=== PATIENT | male | born 1955 | race African-American/Black ===

== ENCOUNTER 2020-08-25 20:48 | Inpatient (IN) ==
[2020-08-25] MEDS ORDERED: SODIUM CHLORIDE 0.9% 1,000 ML IV STA (21:24)
[2020-08-25 21:34] LABS: Basophils % 0.3 % (0.0-0.8); Eosinophils # 0.1 10*3/uL (0.0-0.87); Eosinophils % 3.6 % (0.00-10.9); Hematocrit 32.1 VOL% (42.0-52.0); Hemoglobin 11.3 GM/DL (14.0-18.0); Immature Granulocytes % 0.3 %; Immature Granulocytes Absolute 0.01 #; Lymphocytes # 0.8 10*3/uL (1.4-4.0); Lymphocytes % 21.3 % (21.2-54.2); Mean Corpuscular HGB Conc 35.2 GM/DL (32-36); Mean Corpuscular Volume 95.3 FL (87-102); Mean Platelet Volume 10.2 FL (9.6-12.0); Monocytes % 8.3 % (1.7-12.7); Neutrophils % 66.2 % (38.7-73.9); Platelet Count 134 T/CUMM (130-400); Red Blood Count 3.37 MC/CUMM (3.8-5.5); White Blood Count 3.6 T/CUMM (4-12)
[2020-08-25 21:39] LABS: INR 1.5; PT Patient Result 15.5 SECS (9.8-11.9)
[2020-08-25 21:48] LABS: Albumin 2.8 G/DL (3.4-5.0); Bilirubin,Total 0.6 MG/DL (0.2-1.0); Calcium 7.6 MG/DL (8.5-10.1); Ferritin 504.9 ng/ml (26-388); Osmolality,Calculated 276.2 MOS/KG (273-304)
[2020-08-25] MEDS ORDERED: DEXAMETHASONE 10 MG/1 ML VIAL IV STA (22:10)
[2020-08-25] MEDS ORDERED: AZITHROMYCIN INJ 500 MG in SODIUM CHLORIDE 0.9% 250 ML IV STA (22:10)
[2020-08-25] MEDS ORDERED: diphenhydrAMINE CAP 25 MG CAPSULE PO PRN (23:23)
[2020-08-25] MEDS ORDERED: DEXTROSE 50% 25 GM/50 ML VIAL IV PRN (23:23)
[2020-08-25] MEDS ORDERED: hydrALAZINE 20 MG/1 ML VIAL IV PRN (23:23)
[2020-08-25] MEDS ORDERED: guaiFENesin/DM ER 600-30 MG TABLET PO PRN (23:23)
[2020-08-25] MEDS ORDERED: ACETAMINOPHEN 325 MG TABLET PO PRN (23:23)
[2020-08-25] MEDS ORDERED: GLUCAGON 1 MG VIAL IM PRN (23:23)
[2020-08-25] MEDS ORDERED: NICOTINE 21 MG/24 HR PATCH TRANSDERM PRN (23:23)
[2020-08-25] MEDS ORDERED: ONDANSETRON 4 MG/2 ML VIAL IV PRN (23:23)
[2020-08-26 01:29] LABS: ABG Base Excess 0.7 MMOL/L (-2.5-2.5); ABG Oxygen Saturation 99.2 % (95-100); ABG PCO2 39.3 MM HG (35-48); ABG PH 7.414 (7.35-7.45); ABG TCO2 22.3 MMOL/L (23-27)
[2020-08-26] MEDS: cefTRIAXone 1,000 MG in SYRINGE 1 EACH IV SCH (03:32)
[2020-08-26] MEDS ORDERED: DEXAMETHASONE 4 MG/1 ML VIAL IV SCH (09:00)
[2020-08-26] MEDS: INSULIN REGULAR 100 UNIT/ML SUBCUT SCH ×5 (09:14→21:24)
[2020-08-26] MEDS: AZITHROMYCIN 250 MG TABLET PO SCH (09:15)
[2020-08-26] MEDS ORDERED: REMDESIVIR 200 MG in SODIUM CHLORIDE 0.9% 210 ML IV ONE (10:00)
[2020-08-26] MEDS ORDERED: CETIRIZINE 10 MG TABLET PO PRN (11:18)
[2020-08-26] MEDS ORDERED: NITROGLYCERIN SL 0.4 MG TABLET SL PRN (11:29)
[2020-08-26] MEDS: ASPIRIN CHEW 81 MG TABLET PO SCH (11:47)
[2020-08-26] MEDS: ASCORBIC ACID 500 MG TABLET PO SCH ×2 (11:47→21:34)
[2020-08-26] MEDS: ZINC SULFATE 220 MG CAPSULE PO SCH (11:47)
[2020-08-26] MEDS: DEXAMETHASONE 4 MG/1 ML VIAL IV SCH (11:47)
[2020-08-26] MEDS: CHOLECALCIFEROL 1,000 UNIT TABLET PO SCH (11:47)
[2020-08-26 15:23] LABS: Bilirubin,Urine Negative (Negative); Blood, Urine Small mg/dL (Negative); Glucose,Urine (UA) >=500 mg/dL (Negative); Ketones,Urine 5 mg/dL (Negative); Mucus,Urine Occasional /LPF (Occasional); Nitrite,Urine Negative (Negative); Protein,Urine Negative; RBC,Urine 2 /HPF (0-4); Squamous Epithelial Cell,Urine Occasional /HPF (0-10); Urine Appearance CLEAR (Clear); Urine Color Straw (Yellow); Urine Specific Gravity 1.028 (1.001-1.035); Urine Urobilinogen < 2.0 EU/DL (0.2-1.0)
[2020-08-26] MEDS ORDERED: INSULIN NPH/REGULAR 70/30 100 UNIT/ML SUBCUT SCH (17:00)
[2020-08-26] MEDS: lisinopriL 10 MG TABLET PO SCH (21:34)
[2020-08-26] MEDS: FUROSEMIDE 40 MG TABLET PO SCH (21:34)
[2020-08-26] MEDS: FAMOTIDINE 20 MG TABLET PO SCH (21:34)
[2020-08-26] MEDS: METOPROLOL TARTRATE 50 MG TABLET PO SCH (21:34)
[2020-08-26] MEDS: ATORVASTATIN 10 MG TABLET PO SCH (21:34)
[2020-08-26] MEDS: GABAPENTIN 400 MG CAPSULE PO SCH (21:34)
[2020-08-27] MEDS: cefTRIAXone 1,000 MG in SYRINGE 1 EACH IV SCH (00:39)
[2020-08-27 06:07] LABS: Hematocrit 35.6 VOL% (42.0-52.0); Hemoglobin 12.5 GM/DL (14.0-18.0); Immature Granulocytes % 0.3 %; Immature Granulocytes Absolute 0.02 #; Lymphocytes # 1.6 10*3/uL (1.4-4.0); Lymphocytes % 27.5 % (21.2-54.2); Mean Corpuscular HGB Conc 35.1 GM/DL (32-36); Mean Corpuscular Volume 95.7 FL (87-102); Mean Platelet Volume 10.4 FL (9.6-12.0); Neutrophils % 66.2 % (38.7-73.9); Platelet Count 165 T/CUMM (130-400); Red Blood Count 3.72 MC/CUMM (3.8-5.5); Red Cell Distribution Width 11.9 % (9.3-17.3)
[2020-08-27 06:26] LABS: Albumin 2.9 G/DL (3.4-5.0); Bilirubin,Total 0.7 MG/DL (0.2-1.0); Calcium 8.4 MG/DL (8.5-10.1); Osmolality,Calculated 281.7 MOS/KG (273-304); Total Protein 7.5 G/DL (6.4-8.3)
[2020-08-27 06:46] LABS: Hypochromasia 1+; Microcytosis 1+; Platelet Estimate Adequate
[2020-08-27] MEDS: CLOPIDOGREL 75 MG TABLET PO SCH (08:37)
[2020-08-27] MEDS: CETIRIZINE 10 MG TABLET PO SCH (08:37)
[2020-08-27] MEDS: DEXAMETHASONE 4 MG/1 ML VIAL IV SCH (08:37)
[2020-08-27] MEDS: ASPIRIN CHEW 81 MG TABLET PO SCH (08:37)
[2020-08-27] MEDS: AZITHROMYCIN 250 MG TABLET PO SCH (08:38)
[2020-08-27] MEDS: ASCORBIC ACID 500 MG TABLET PO SCH ×2 (08:38→21:23)
[2020-08-27] MEDS: GABAPENTIN 400 MG CAPSULE PO SCH ×2 (08:38→21:23)
[2020-08-27] MEDS: lisinopriL 10 MG TABLET PO SCH ×2 (08:38→21:23)
[2020-08-27] MEDS: METOPROLOL TARTRATE 50 MG TABLET PO SCH ×2 (08:38→21:23)
[2020-08-27] MEDS: INSULIN NPH/REGULAR 70/30 100 UNIT/ML SUBCUT SCH ×2 (08:38→16:27)
[2020-08-27] MEDS: ZINC SULFATE 220 MG CAPSULE PO SCH (08:38)
[2020-08-27] MEDS: FUROSEMIDE 40 MG TABLET PO SCH ×2 (08:38→21:23)
[2020-08-27] MEDS: FAMOTIDINE 20 MG TABLET PO SCH (08:39)
[2020-08-27] MEDS: INSULIN REGULAR 100 UNIT/ML SUBCUT SCH ×4 (08:39→21:23)
[2020-08-27] MEDS: CHOLECALCIFEROL 1,000 UNIT TABLET PO SCH (08:39)
[2020-08-27] MEDS: REMDESIVIR 100 MG in SODIUM CHLORIDE 0.9% 230 ML IV SCH (09:53)
[2020-08-27] MEDS: ALBUTEROL INHALER 18 GM INH SCH ×2 (14:29→18:22)
[2020-08-27] MEDS: ATORVASTATIN 10 MG TABLET PO SCH (21:23)
[2020-08-28] MEDS: cefTRIAXone 1,000 MG in SYRINGE 1 EACH IV SCH ×2 (00:59→23:50)
[2020-08-28] MEDS: ALBUTEROL INHALER 18 GM INH SCH ×4 (01:09→18:22)
[2020-08-28 04:33] LABS: ABG Base Excess 1.4 MMOL/L (-2.5-2.5); ABG Oxygen Saturation 98.5 % (95-100); ABG PCO2 40.9 MM HG (35-48); ABG PH 7.421 (7.35-7.45); ABG PO2 145.3 MM HG (80-95); ABG TCO2 27.2 MMOL/L (23-27); Allen Test Positive
[2020-08-28 06:01] LABS: Basophils % 0.3 % (0.0-0.8); Hematocrit 34.8 VOL% (42.0-52.0); Hemoglobin 12.1 GM/DL (14.0-18.0); Immature Granulocytes % 0.5 %; Immature Granulocytes Absolute 0.03 #; Lymphocytes # 1.7 10*3/uL (1.4-4.0); Lymphocytes % 26.4 % (21.2-54.2); Mean Corpuscular HGB Conc 34.8 GM/DL (32-36); Mean Corpuscular Volume 96.9 FL (87-102); Mean Platelet Volume 10.3 FL (9.6-12.0); Neutrophils % 62.8 % (38.7-73.9); Platelet Count 161 T/CUMM (130-400); Red Blood Count 3.59 MC/CUMM (3.8-5.5); White Blood Count 6.3 T/CUMM (4-12)
[2020-08-28 06:31] LABS: Hypochromasia 1+; Lymphocytes 19 % (20-55); Microcytosis 1+; Platelet Estimate Adequate; Segmented Neutrophils 71 % (50-85); Total Cells Counted 100
[2020-08-28 06:36] LABS: Albumin 2.9 G/DL (3.4-5.0); Bilirubin,Total 1.2 MG/DL (0.2-1.0); Calcium 8.1 MG/DL (8.5-10.1); Osmolality,Calculated 279.3 MOS/KG (273-304); Total Protein 7.2 G/DL (6.4-8.3)
[2020-08-28] MEDS: DEXAMETHASONE 4 MG/1 ML VIAL IV SCH (09:32)
[2020-08-28] MEDS: REMDESIVIR 100 MG in SODIUM CHLORIDE 0.9% 230 ML IV SCH (09:32)
[2020-08-28] MEDS: ZINC SULFATE 220 MG CAPSULE PO SCH (09:32)
[2020-08-28] MEDS: AZITHROMYCIN 250 MG TABLET PO SCH (09:33)
[2020-08-28] MEDS: FUROSEMIDE 40 MG TABLET PO SCH ×2 (09:33→21:21)
[2020-08-28] MEDS: GABAPENTIN 400 MG CAPSULE PO SCH ×2 (09:33→21:21)
[2020-08-28] MEDS: lisinopriL 10 MG TABLET PO SCH ×2 (09:33→21:21)
[2020-08-28] MEDS: CHOLECALCIFEROL 1,000 UNIT TABLET PO SCH (09:33)
[2020-08-28] MEDS: CETIRIZINE 10 MG TABLET PO SCH (09:33)
[2020-08-28] MEDS: METOPROLOL TARTRATE 50 MG TABLET PO SCH ×2 (09:33→21:21)
[2020-08-28] MEDS: ASCORBIC ACID 500 MG TABLET PO SCH ×2 (09:33→21:21)
[2020-08-28] MEDS: ASPIRIN CHEW 81 MG TABLET PO SCH (09:34)
[2020-08-28] MEDS: INSULIN NPH/REGULAR 70/30 100 UNIT/ML SUBCUT SCH ×2 (09:34→17:10)
[2020-08-28] MEDS: FAMOTIDINE 20 MG TABLET PO SCH (09:34)
[2020-08-28] MEDS: CLOPIDOGREL 75 MG TABLET PO SCH (09:34)
[2020-08-28] MEDS: INSULIN REGULAR 100 UNIT/ML SUBCUT SCH ×4 (09:34→20:00)
[2020-08-28] MEDS ORDERED: POTASSIUM CHLORIDE 20 MEQ TABLET PO ONE (11:00)
[2020-08-28] MEDS: ENOXAPARIN 40 MG/0.4 ML SYRINGE SUBCUT SCH (12:56)
[2020-08-28] MEDS ORDERED: PHENOL 1.4% THROAT SPRAY 177 ML BOTTLE PO PRN (17:11)
[2020-08-28] MEDS: ATORVASTATIN 10 MG TABLET PO SCH (21:21)
[2020-08-29] MEDS: ALBUTEROL INHALER 18 GM INH SCH ×4 (00:22→19:16)
[2020-08-29 05:44] LABS: Basophils % 0.2 % (0.0-0.8); Eosinophils # 0.1 10*3/uL (0.0-0.87); Eosinophils % 1.5 % (0.00-10.9); Hemoglobin 11.9 GM/DL (14.0-18.0); Immature Granulocytes % 0.3 %; Immature Granulocytes Absolute 0.02 #; Lymphocytes % 33.9 % (21.2-54.2); Mean Platelet Volume 10.4 FL (9.6-12.0); Monocytes % 7.6 % (1.7-12.7); Neutrophils % 56.5 % (38.7-73.9); Platelet Count 164 T/CUMM (130-400); Red Blood Count 3.54 MC/CUMM (3.8-5.5); Red Cell Distribution Width 11.9 % (9.3-17.3); White Blood Count 5.9 T/CUMM (4-12)
[2020-08-29 06:16] LABS: Albumin 2.7 G/DL (3.4-5.0); Bilirubin,Total 1.2 MG/DL (0.2-1.0); Calcium 7.9 MG/DL (8.5-10.1); Osmolality,Calculated 282.3 MOS/KG (273-304)
[2020-08-29 06:19] LABS: Atypical Lymphocytes Few; Eosinophils 1 % (0-10); Hypochromasia 1+; Lymphocytes 33 % (20-55); Microcytosis 1+; Platelet Estimate Adequate; Segmented Neutrophils 60 % (50-85); Total Cells Counted 100
[2020-08-29] MEDS: INSULIN NPH/REGULAR 70/30 100 UNIT/ML SUBCUT SCH ×2 (09:05→16:37)
[2020-08-29] MEDS: CETIRIZINE 10 MG TABLET PO SCH (09:05)
[2020-08-29] MEDS: ASCORBIC ACID 500 MG TABLET PO SCH ×2 (09:05→20:30)
[2020-08-29] MEDS: CLOPIDOGREL 75 MG TABLET PO SCH (09:05)
[2020-08-29] MEDS: FUROSEMIDE 40 MG TABLET PO SCH ×2 (09:05→20:30)
[2020-08-29] MEDS: METOPROLOL TARTRATE 50 MG TABLET PO SCH ×2 (09:05→20:30)
[2020-08-29] MEDS: ASPIRIN CHEW 81 MG TABLET PO SCH (09:05)
[2020-08-29] MEDS: GABAPENTIN 400 MG CAPSULE PO SCH ×2 (09:05→20:30)
[2020-08-29] MEDS: AZITHROMYCIN 250 MG TABLET PO SCH (09:05)
[2020-08-29] MEDS: FAMOTIDINE 20 MG TABLET PO SCH (09:05)
[2020-08-29] MEDS: ZINC SULFATE 220 MG CAPSULE PO SCH (09:05)
[2020-08-29] MEDS: CHOLECALCIFEROL 1,000 UNIT TABLET PO SCH (09:05)
[2020-08-29] MEDS: lisinopriL 10 MG TABLET PO SCH ×2 (09:05→20:30)
[2020-08-29] MEDS: INSULIN REGULAR 100 UNIT/ML SUBCUT SCH ×4 (09:13→20:30)
[2020-08-29] MEDS: DEXAMETHASONE 4 MG/1 ML VIAL IV SCH (09:14)
[2020-08-29] MEDS: REMDESIVIR 100 MG in SODIUM CHLORIDE 0.9% 230 ML IV SCH (09:15)
[2020-08-29] MEDS: ENOXAPARIN 40 MG/0.4 ML SYRINGE SUBCUT SCH (11:08)
[2020-08-29] MEDS: ATORVASTATIN 10 MG TABLET PO SCH (20:30)
[2020-08-30] MEDS: ALBUTEROL INHALER 18 GM INH SCH ×2 (00:07→06:12)
[2020-08-30] MEDS: cefTRIAXone 1,000 MG in SYRINGE 1 EACH IV SCH (00:07)
[2020-08-30 06:13] LABS: Basophils % 0.3 % (0.0-0.8); Eosinophils % 0.3 % (0.00-10.9); Hematocrit 33.6 VOL% (42.0-52.0); Hemoglobin 11.9 GM/DL (14.0-18.0); Immature Granulocytes % 0.3 %; Immature Granulocytes Absolute 0.02 #; Lymphocytes # 1.7 10*3/uL (1.4-4.0); Lymphocytes % 27.7 % (21.2-54.2); Mean Corpuscular HGB Conc 35.4 GM/DL (32-36); Mean Platelet Volume 10.5 FL (9.6-12.0); Monocytes % 7.9 % (1.7-12.7); Neutrophils % 63.5 % (38.7-73.9); Platelet Count 201 T/CUMM (130-400); White Blood Count 6.2 T/CUMM (4-12)
[2020-08-30 06:36] LABS: Band Neutrophils 1 % (0-10); Hypochromasia 1+; Lymphocytes 30 % (20-55); Microcytosis 1+; Ovalocytes Slight; Platelet Estimate Adequate; Segmented Neutrophils 64 % (50-85); Total Cells Counted 100
[2020-08-30 06:37] LABS: Atypical Lymphocytes Few
[2020-08-30 06:55] LABS: Albumin 2.7 G/DL (3.4-5.0); Bilirubin,Total 1.6 MG/DL (0.2-1.0); Calcium 8.5 MG/DL (8.5-10.1); Osmolality,Calculated 282.5 MOS/KG (273-304); Total Protein 7.2 G/DL (6.4-8.3)
[2020-08-30] MEDS: INSULIN NPH/REGULAR 70/30 100 UNIT/ML SUBCUT SCH (08:39)
[2020-08-30] MEDS: METOPROLOL TARTRATE 50 MG TABLET PO SCH (08:40)
[2020-08-30] MEDS: GABAPENTIN 400 MG CAPSULE PO SCH (08:40)
[2020-08-30] MEDS: ZINC SULFATE 220 MG CAPSULE PO SCH (08:40)
[2020-08-30] MEDS: CHOLECALCIFEROL 1,000 UNIT TABLET PO SCH (08:40)
[2020-08-30] MEDS: lisinopriL 10 MG TABLET PO SCH (08:40)
[2020-08-30] MEDS: CLOPIDOGREL 75 MG TABLET PO SCH (08:40)
[2020-08-30] MEDS: DEXAMETHASONE 4 MG/1 ML VIAL IV SCH (08:40)
[2020-08-30] MEDS: INSULIN REGULAR 100 UNIT/ML SUBCUT SCH ×2 (08:40→11:24)
[2020-08-30] MEDS: FAMOTIDINE 20 MG TABLET PO SCH (08:41)
[2020-08-30] MEDS: FUROSEMIDE 40 MG TABLET PO SCH (08:41)
[2020-08-30] MEDS: ASCORBIC ACID 500 MG TABLET PO SCH (08:41)
[2020-08-30] MEDS: ASPIRIN CHEW 81 MG TABLET PO SCH (08:41)
[2020-08-30] MEDS: CETIRIZINE 10 MG TABLET PO SCH (08:41)
[2020-08-30] MEDS: REMDESIVIR 100 MG in SODIUM CHLORIDE 0.9% 230 ML IV SCH (10:47)
[2020-08-30] MEDS: ENOXAPARIN 40 MG/0.4 ML SYRINGE SUBCUT SCH (11:24)
[2020-08-30 11:38] VITALS: BP 144/77
== END 2020-08-30 13:20 | disposition home health service (06) | DRG 177 ==
LOC: EDUNIT# → EDBD → N.ED 20:48 → N.EDINP 20:48 → SUATTDRO 23:23 → N.2E 23:44
PROVIDERS: ADMIT Family Medicine; ATTEND Internal Medicine

== ENCOUNTER 2020-12-28 10:48 | Observation (INO) ==
[2020-12-28 11:17] LABS: Basophils % 0.5 % (0.0-0.8); Eosinophils # 0.6 10*3/uL (0.0-0.87); Eosinophils % 8.6 % (0.00-10.9); Hematocrit 37.2 VOL% (42.0-52.0); Hemoglobin 12.5 GM/DL (14.0-18.0); Immature Granulocytes % 0.5 %; Immature Granulocytes Absolute 0.03 #; Lymphocytes % 31.8 % (21.2-54.2); Mean Corpuscular HGB Conc 33.6 GM/DL (32-36); Mean Corpuscular Volume 100.3 FL (87-102); Mean Platelet Volume 9.4 FL (9.6-12.0); Monocytes % 10.5 % (1.7-12.7); Neutrophils % 48.1 % (38.7-73.9); Platelet Count 198 T/CUMM (130-400); Red Blood Count 3.71 MC/CUMM (3.8-5.5); Red Cell Distribution Width 14.2 % (9.3-17.3); White Blood Count 6.4 T/CUMM (4-12)
[2020-12-28] MEDS ORDERED: ENOXAPARIN 100 MG/ML SYRINGE SUBCUT STA (11:32)
[2020-12-28 11:46] LABS: Calcium 8.7 MG/DL (8.5-10.1)
[2020-12-28 11:47] LABS: Albumin 3.3 G/DL (3.4-5.0); Osmolality,Calculated 285.8 MOS/KG (273-304); Total Protein 7.3 G/DL (6.4-8.2)
[2020-12-28] MEDS ORDERED: FUROSEMIDE 100 MG/10 ML VIAL IV STA (12:14)
[2020-12-28] MEDS ORDERED: FUROSEMIDE 40 MG/4 ML VIAL ONE (12:19)
[2020-12-28] MEDS ORDERED: DEXTROSE 50% 25 GM/50 ML VIAL IV PRN (13:23)
[2020-12-28] MEDS ORDERED: GLUCAGON 1 MG VIAL IM PRN (13:23)
[2020-12-28] MEDS ORDERED: hydrALAZINE 20 MG/1 ML VIAL IV PRN (13:23)
[2020-12-28] MEDS ORDERED: ACETAMINOPHEN 325 MG TABLET PO PRN (13:23)
[2020-12-28] MEDS ORDERED: ONDANSETRON 4 MG/2 ML VIAL IV PRN (13:23)
[2020-12-28] MEDS ORDERED: NITROGLYCERIN SL 0.4 MG TABLET SL PRN (13:27)
[2020-12-28 14:09] LABS: Thyroid Stimulating Hormone 2.93 uIU/ml (0.358-3.74); VLDL CHOLESTEROL 21.2 MG/DL
[2020-12-28 15:53] LABS: INR 3.5
[2020-12-28 15:55] LABS: PT Patient Result 35.3 SECS (9.8-11.9)
[2020-12-28] MEDS: INSULIN LISPRO 100 UNIT/ML SUBCUT SCH ×2 (16:18→20:51)
[2020-12-28] MEDS ORDERED: INSULIN NPH/REGULAR 70/30 100 UNIT/ML SUBCUT SCH (19:00)
[2020-12-28] MEDS: FUROSEMIDE 40 MG/4 ML VIAL IV SCH (20:50)
[2020-12-28] MEDS: METOPROLOL TARTRATE 50 MG TABLET PO SCH (20:50)
[2020-12-28] MEDS ORDERED: lisinopriL 10 MG TABLET PO SCH (21:00)
[2020-12-28] MEDS ORDERED: ATORVASTATIN 10 MG TABLET PO SCH (21:00)
[2020-12-29 05:45] LABS: Basophils % 0.3 % (0.0-0.8); Eosinophils # 0.6 10*3/uL (0.0-0.87); Eosinophils % 8.2 % (0.00-10.9); Hematocrit 37.5 VOL% (42.0-52.0); Hemoglobin 12.6 GM/DL (14.0-18.0); Immature Granulocytes % 0.3 %; Immature Granulocytes Absolute 0.02 #; Lymphocytes # 2.6 10*3/uL (1.4-4.0); Lymphocytes % 36.8 % (21.2-54.2); Mean Corpuscular HGB Conc 33.6 GM/DL (32-36); Mean Corpuscular Volume 99.5 FL (87-102); Mean Platelet Volume 9.6 FL (9.6-12.0); Monocytes % 11.8 % (1.7-12.7); Neutrophils % 42.6 % (38.7-73.9); Platelet Count 207 T/CUMM (130-400); Red Blood Count 3.77 MC/CUMM (3.8-5.5); White Blood Count 6.9 T/CUMM (4-12)
[2020-12-29 05:47] LABS: INR 2.3; PT Patient Result 23.6 SECS (9.8-11.9)
[2020-12-29 06:08] LABS: Calcium 8.9 MG/DL (8.5-10.1); Osmolality,Calculated 283.3 MOS/KG (273-304); Potassium 4.1 MMOL/L (3.5-5.1)
[2020-12-29] MEDS ORDERED: CLOPIDOGREL 75 MG TABLET PO SCH (09:00)
[2020-12-29] MEDS ORDERED: lisinopriL 20 MG TABLET PO SCH (09:00)
[2020-12-29] MEDS ORDERED: ENOXAPARIN 40 MG/0.4 ML SYRINGE SUBCUT SCH (09:00)
[2020-12-29] MEDS ORDERED: PANTOPRAZOLE 40 MG TABLET PO SCH (09:00)
[2020-12-29] MEDS ORDERED: ASPIRIN 325 MG TABLET PO SCH (09:00)
[2020-12-29] MEDS ORDERED: INSULIN NPH/REGULAR 70/30 100 UNIT/ML SUBCUT SCH (09:00)
[2020-12-29] MEDS: INSULIN LISPRO 100 UNIT/ML SUBCUT SCH ×3 (10:09→16:47)
[2020-12-29] MEDS: METOPROLOL TARTRATE 50 MG TABLET PO SCH (10:11)
[2020-12-29] MEDS: FUROSEMIDE 40 MG/4 ML VIAL IV SCH ×2 (10:14→16:31)
[2020-12-29 11:16] VITALS: BP 128/75
== END 2020-12-29 17:14 | disposition home or self-care (01) ==
LOC: N.EDINP 10:48 → N.ED 10:48 → N.EDINP 15:50 → N.TELES 15:59
PROVIDERS: ADMIT Internal Medicine; ATTEND Internal Medicine

== ENCOUNTER 2021-11-23 12:15 | Inpatient (IN) ==
[2021-11-23 14:49] LABS: Basophils % 0.3 % (0.0-0.8); Eosinophils # 0.1 10*3/uL (0.0-0.87); Eosinophils % 2.2 % (0.00-10.9); Hematocrit 39.6 VOL% (42.0-52.0); Hemoglobin 13.6 GM/DL (14.0-18.0); Immature Granulocytes % 0.3 %; Immature Granulocytes Absolute 0.02 #; Lymphocytes # 2.3 10*3/uL (1.4-4.0); Lymphocytes % 36.9 % (21.2-54.2); Mean Corpuscular HGB Conc 34.3 GM/DL (32-36); Mean Corpuscular Volume 96.4 FL (87-102); Mean Platelet Volume 9.3 FL (9.6-12.0); Monocytes % 10.8 % (1.7-12.7); Neutrophils % 49.5 % (38.7-73.9); Platelet Count 200 T/CUMM (130-400); Red Blood Count 4.11 MC/CUMM (3.8-5.5); Red Cell Distribution Width 11.9 % (9.3-17.3); White Blood Count 6.2 T/CUMM (4-12)
[2021-11-23 15:10] LABS: Albumin 3.2 G/DL (3.4-5.0); Bilirubin,Total 0.5 MG/DL (0.20-1.00); Calcium 8.5 MG/DL (8.5-10.1); Osmolality,Calculated 282.4 MOS/KG (273-304); Potassium 4.3 MMOL/L (3.5-5.1); Total Protein 7.9 G/DL (6.4-8.2)
[2021-11-23] MEDS ORDERED: ONDANSETRON 4 MG/2 ML VIAL IV PRN (15:46)
[2021-11-23] MEDS ORDERED: ACETAMINOPHEN 325 MG TABLET PO PRN (15:46)
[2021-11-23 15:47] LABS: Eosinophils 3 % (0-10); Hypochromia 1+; Lymphocytes 33 % (20-55); Macrocytosis 1+; Platelet Estimate Decreased; Segmented Neutrophils 57 % (50-85); Total Cells Counted 100
[2021-11-23] MEDS ORDERED: NITROGLYCERIN SL 0.4 MG TABLET SL PRN (15:50)
[2021-11-23] MEDS ORDERED: GLUCAGON 1 MG VIAL IM PRN (16:58)
[2021-11-23] MEDS ORDERED: DEXTROSE 10% 250 ML BAG IV PRN (17:04)
[2021-11-23] MEDS ORDERED: hydrALAZINE 20 MG/1 ML VIAL IV PRN (17:12)
[2021-11-23] MEDS: PIPERACILLIN/TAZOBACTAM 3,375 MG in SODIUM CHLORIDE 0.9% 100 ML IV SCH (17:15)
[2021-11-23] MEDS ORDERED: INSULIN NPH 100 UNIT/ML SUBCUT SCH (17:16)
[2021-11-23] MEDS ORDERED: INSULIN NPH/REGULAR 70/30 100 UNIT/ML SUBCUT SCH ×2 (17:30→19:00)
[2021-11-23] MEDS: INSULIN LISPRO 100 UNIT/ML SUBCUT SCH ×2 (18:10→21:00)
[2021-11-23] MEDS: SODIUM CHLORIDE 0.45% 1,000 ML IV SCH (18:10)
[2021-11-23 18:22] LABS: INR 1.2; PT Patient Result 13.1 SECS (10.5-12.0)
[2021-11-23] MEDS: ALBUTEROL 2.5 MG/3 ML NEB RESP TX SCH (19:25)
[2021-11-23] MEDS: GABAPENTIN 400 MG CAPSULE PO SCH (20:51)
[2021-11-23] MEDS: METOPROLOL TARTRATE 50 MG TABLET PO SCH (20:52)
[2021-11-23] MEDS: lisinopriL 20 MG TABLET PO SCH (20:53)
[2021-11-23] MEDS ORDERED: diphenhydrAMINE CAP 25 MG CAPSULE PO ONE (23:30)
[2021-11-24] MEDS: ALBUTEROL 2.5 MG/3 ML NEB RESP TX SCH ×4 (00:05→19:28)
[2021-11-24] MEDS: PIPERACILLIN/TAZOBACTAM 3,375 MG in SODIUM CHLORIDE 0.9% 100 ML IV SCH ×3 (00:47→16:01)
[2021-11-24] MEDS: INSULIN LISPRO 100 UNIT/ML SUBCUT SCH ×5 (04:17→21:15)
[2021-11-24 06:17] LABS: Basophils % 0.4 % (0.0-0.8); Eosinophils # 0.2 10*3/uL (0.0-0.87); Eosinophils % 4.2 % (0.00-10.9); Hematocrit 37.9 VOL% (42.0-52.0); Hemoglobin 12.9 GM/DL (14.0-18.0); Immature Granulocytes % 0.4 %; Immature Granulocytes Absolute 0.02 #; Lymphocytes # 1.9 10*3/uL (1.4-4.0); Lymphocytes % 33.3 % (21.2-54.2); Mean Corpuscular Volume 96.9 FL (87-102); Mean Platelet Volume 9.1 FL (9.6-12.0); Monocytes % 14.2 % (1.7-12.7); Neutrophils % 47.5 % (38.7-73.9); Platelet Count 177 T/CUMM (130-400); Red Blood Count 3.91 MC/CUMM (3.8-5.5); Red Cell Distribution Width 11.9 % (9.3-17.3); White Blood Count 5.7 T/CUMM (4-12)
[2021-11-24 06:19] LABS: INR 1.2; PT Patient Result 12.9 SECS (10.5-12.0)
[2021-11-24 06:23] LABS: Calcium 8.2 MG/DL (8.5-10.1)
[2021-11-24] MEDS ORDERED: FUROSEMIDE 20 MG TABLET PO SCH (08:00)
[2021-11-24] MEDS: ASPIRIN 325 MG TABLET PO SCH (08:37)
[2021-11-24] MEDS: METOPROLOL TARTRATE 50 MG TABLET PO SCH ×2 (08:38→21:15)
[2021-11-24] MEDS: lisinopriL 20 MG TABLET PO SCH ×2 (08:39→21:15)
[2021-11-24] MEDS: PANTOPRAZOLE 40 MG TABLET PO SCH (08:39)
[2021-11-24] MEDS: GABAPENTIN 400 MG CAPSULE PO SCH ×3 (08:39→21:15)
[2021-11-24] MEDS: SODIUM CHLORIDE 0.45% 1,000 ML IV SCH ×3 (08:40→18:00)
[2021-11-24] MEDS ORDERED: INSULIN NPH 100 UNIT/ML SUBCUT SCH (09:00)
[2021-11-24] MEDS: INSULIN NPH/REGULAR 70/30 100 UNIT/ML SUBCUT SCH (21:15)
[2021-11-24] MEDS: oxyCODONE/ACETAMINOPHEN 5-325 MG TABLET PO PRN (21:15)
[2021-11-25] MEDS: INSULIN LISPRO 100 UNIT/ML SUBCUT SCH ×6 (00:35→21:40)
[2021-11-25] MEDS: ALBUTEROL 2.5 MG/3 ML NEB RESP TX SCH ×4 (00:55→19:36)
[2021-11-25] MEDS: PIPERACILLIN/TAZOBACTAM 3,375 MG in SODIUM CHLORIDE 0.9% 100 ML IV SCH ×3 (01:15→17:11)
[2021-11-25 05:44] LABS: Basophils % 0.6 % (0.0-0.8); Eosinophils # 0.2 10*3/uL (0.0-0.87); Eosinophils % 4.7 % (0.00-10.9); Hematocrit 40.8 VOL% (42.0-52.0); Hemoglobin 13.1 GM/DL (14.0-18.0); Immature Granulocytes % 0.2 %; Immature Granulocytes Absolute 0.01 #; Lymphocytes # 2.6 10*3/uL (1.4-4.0); Lymphocytes % 49.4 % (21.2-54.2); Mean Corpuscular HGB Conc 32.1 GM/DL (32-36); Mean Corpuscular Volume 103.6 FL (87-102); Mean Platelet Volume 9.2 FL (9.6-12.0); Neutrophils % 32.1 % (38.7-73.9); Platelet Count 168 T/CUMM (130-400); Red Blood Count 3.94 MC/CUMM (3.8-5.5); Red Cell Distribution Width 12.3 % (9.3-17.3); White Blood Count 5.2 T/CUMM (4-12)
[2021-11-25 06:01] LABS: INR 1.2; PT Patient Result 12.8 SECS (10.5-12.0)
[2021-11-25 06:08] LABS: Calcium 8.5 MG/DL (8.5-10.1); Osmolality,Calculated 260.8 MOS/KG (273-304); Potassium 4.1 MMOL/L (3.5-5.1)
[2021-11-25 06:31] LABS: Eosinophils 2 % (0-10); Hypochromia 1+; Lymphocytes 45 % (20-55); Macrocytosis 1+; Platelet Estimate Adequate; Segmented Neutrophils 41 % (50-85); Total Cells Counted 100
[2021-11-25] MEDS ORDERED: DEXTROSE 10% 250 ML BAG IV PRN (08:07)
[2021-11-25] MEDS: INSULIN NPH/REGULAR 70/30 100 UNIT/ML SUBCUT SCH ×2 (10:19→21:40)
[2021-11-25] MEDS: PANTOPRAZOLE 40 MG TABLET PO SCH (10:20)
[2021-11-25] MEDS: GABAPENTIN 400 MG CAPSULE PO SCH ×3 (10:20→20:50)
[2021-11-25] MEDS: ASPIRIN 325 MG TABLET PO SCH (10:20)
[2021-11-25] MEDS: SODIUM CHLORIDE 0.45% 1,000 ML IV SCH (10:24)
[2021-11-25] MEDS: lisinopriL 20 MG TABLET PO SCH ×2 (12:05→20:50)
[2021-11-25] MEDS: METOPROLOL TARTRATE 50 MG TABLET PO SCH ×2 (12:05→20:50)
[2021-11-25] MEDS ORDERED: SODIUM CHLORIDE 0.65% NASAL SPRAY 45 ML BOTTLE BOTH NARES PRN (19:02)
[2021-11-25] MEDS: oxyCODONE/ACETAMINOPHEN 5-325 MG TABLET PO PRN (20:50)
[2021-11-26] MEDS: INSULIN LISPRO 100 UNIT/ML SUBCUT SCH ×4 (00:20→12:18)
[2021-11-26] MEDS: PIPERACILLIN/TAZOBACTAM 3,375 MG in SODIUM CHLORIDE 0.9% 100 ML IV SCH ×2 (00:20→10:10)
[2021-11-26] MEDS: ALBUTEROL 2.5 MG/3 ML NEB RESP TX SCH ×2 (00:52→10:54)
[2021-11-26 06:27] LABS: Basophils % 0.6 % (0.0-0.8); Eosinophils # 0.3 10*3/uL (0.0-0.87); Eosinophils % 5.1 % (0.00-10.9); Hematocrit 37.5 VOL% (42.0-52.0); Hemoglobin 12.8 GM/DL (14.0-18.0); Immature Granulocytes % 0.2 %; Immature Granulocytes Absolute 0.01 #; Lymphocytes # 2.7 10*3/uL (1.4-4.0); Lymphocytes % 51.1 % (21.2-54.2); Mean Corpuscular HGB Conc 34.1 GM/DL (32-36); Mean Corpuscular Volume 97.9 FL (87-102); Mean Platelet Volume 9.2 FL (9.6-12.0); Monocytes % 9.2 % (1.7-12.7); Neutrophils % 33.8 % (38.7-73.9); Platelet Count 192 T/CUMM (130-400); Red Blood Count 3.83 MC/CUMM (3.8-5.5); Red Cell Distribution Width 12.1 % (9.3-17.3); White Blood Count 5.3 T/CUMM (4-12)
[2021-11-26 06:31] LABS: INR 1.1; PT Patient Result 11.8 SECS (10.5-12.0)
[2021-11-26 06:41] LABS: Calcium 8.1 MG/DL (8.5-10.1); Potassium 4.1 MMOL/L (3.5-5.1)
[2021-11-26 06:52] LABS: Eosinophils 7 % (0-10); Hypochromia Slight; Lymphocytes 47 % (20-55); Microcytosis Slight; Platelet Estimate Adequate; Segmented Neutrophils 40 % (50-85); Total Cells Counted 100
[2021-11-26] MEDS: PANTOPRAZOLE 40 MG TABLET PO SCH (10:10)
[2021-11-26] MEDS: GABAPENTIN 400 MG CAPSULE PO SCH (10:10)
[2021-11-26] MEDS: METOPROLOL TARTRATE 50 MG TABLET PO SCH (10:10)
[2021-11-26] MEDS: lisinopriL 20 MG TABLET PO SCH (10:10)
[2021-11-26] MEDS: ASPIRIN 325 MG TABLET PO SCH (10:10)
[2021-11-26] MEDS: INSULIN NPH/REGULAR 70/30 100 UNIT/ML SUBCUT SCH (10:46)
[2021-11-26 12:10] VITALS: BP 134/76
== END 2021-11-26 15:15 | disposition home or self-care (01) | DRG 394 ==
LOC: N.ED 12:15 → N.EDINP 15:46 → N.3E 17:10
PROVIDERS: ADMIT Surgery; ATTEND Surgery

== ENCOUNTER 2022-02-12 05:56 | Inpatient (IN) ==
[2022-02-05 11:03] LABS: Basophils % 0.3 % (0.0-0.8); Eosinophils # 0.3 10*3/uL (0.0-0.87); Eosinophils % 3.5 % (0.00-10.9); Hematocrit 34.9 VOL% (42.0-52.0); Hemoglobin 11.8 GM/DL (14.0-18.0); Immature Granulocytes % 0.4 %; Immature Granulocytes Absolute 0.03 #; Lymphocytes # 2.3 10*3/uL (1.4-4.0); Lymphocytes % 32.8 % (21.2-54.2); Mean Corpuscular HGB Conc 33.8 GM/DL (32-36); Mean Corpuscular Volume 99.4 FL (87-102); Mean Platelet Volume 9.9 FL (9.6-12.0); Monocytes # 0.6 10*3/uL (0.11-0.8); Monocytes % 8.3 % (1.7-12.7); Neutrophils % 54.7 % (38.7-73.9); Platelet Count 222 T/CUMM (130-400); Red Blood Count 3.51 MC/CUMM (3.8-5.5); Red Cell Distribution Width 13.4 % (9.3-17.3); White Blood Count 7.1 T/CUMM (4-12)
[2022-02-05 11:10] LABS: Hyaline Casts,Urine 10 /LPF (0-3); RBC,Urine 6 /HPF (0-4); Squamous Epithelial Cell,Urine Few /HPF (0-10)
[2022-02-05 11:13] LABS: Bilirubin,Urine Negative (Negative); Blood, Urine Small mg/dL (Negative); Glucose,Urine (UA) Negative (Negative); Ketones,Urine Negative (Negative); Nitrite,Urine Negative (Negative); Protein,Urine Negative (Negative); Urine Appearance Clear (Clear); Urine Color Yellow (Yellow); Urine Urobilinogen 0.2 eU/dL (<2.0)
[2022-02-05 11:15] LABS: INR 2.5; PT Patient Result 26.1 SECS (10.5-12.0); Partial Thromboplastin Time 37.7 SECS (23.8-32.1)
[2022-02-05 11:56] LABS: Bilirubin,Total 0.6 MG/DL (0.20-1.00); Calcium 8.3 MG/DL (8.5-10.1); Osmolality,Calculated 290.4 MOS/KG (273-304); Potassium 4.1 MMOL/L (3.5-5.1); Total Protein 6.8 G/DL (6.4-8.2)
[2022-02-12] MEDS ORDERED: ceFAZolin 2,000 MG/50 ML DUPLEX IV ONE (06:30)
[2022-02-12] MEDS ORDERED: VANCOMYCIN INJ 1,000 MG in SODIUM CHLORIDE 0.9% 250 ML IV ONE (06:30)
[2022-02-12] MEDS ORDERED: LACTATED RINGERS 1,000 ML IV SCH ×2 (06:30→07:30)
[2022-02-12] MEDS ORDERED: ONDANSETRON 4 MG/2 ML VIAL ONE (06:33)
[2022-02-12] MEDS ORDERED: DEXMEDETOMIDINE 200 MCG/2 ML VIAL ONE (06:33)
[2022-02-12] MEDS ORDERED: TRANEXAMIC ACID 1,000 MG/10 ML VIAL ONE (06:33)
[2022-02-12] MEDS ORDERED: BUPIVACAINE MPF 0.5% 30 ML VIAL ONE (06:33)
[2022-02-12] MEDS ORDERED: MIDAZOLAM 2 MG/2 ML VIAL ONE (06:33)
[2022-02-12] MEDS ORDERED: buprenorphine HCL 0.3 MG/ML VIAL ONE (06:33)
[2022-02-12 06:38] LABS: Partial Thromboplastin Time 25.6 SECS (23.8-32.1)
[2022-02-12] MEDS ORDERED: BACITRACIN OINT 0.9 GM PACK TOP ONE (06:45)
[2022-02-12] MEDS ORDERED: ALBUTEROL 2.5 MG/3 ML NEB RESP TX PRN (07:19)
[2022-02-12] MEDS ORDERED: NITROGLYCERIN SL 0.4 MG TABLET SL PRN (07:19)
[2022-02-12] MEDS ORDERED: HYDROmorphone 1 MG/1 ML SYRINGE IV PRN ×2 (07:23)
[2022-02-12] MEDS ORDERED: MAGNESIUM HYDROXIDE SUSP 30 ML UDCUP PO PRN (07:23)
[2022-02-12] MEDS ORDERED: ONDANSETRON 4 MG/2 ML VIAL IV PRN (07:23)
[2022-02-12] MEDS ORDERED: DEXTROSE 10% 250 ML BAG IV PRN (07:25)
[2022-02-12] MEDS ORDERED: GLUCAGON 1 MG VIAL IM PRN (07:25)
[2022-02-12] MEDS ORDERED: ePHEDrine 50 MG/ML VIAL ONE (07:52)
[2022-02-12] MEDS ORDERED: INSULIN REGULAR 100 UNIT/ML IV ONE ×2 (09:21→10:34)
[2022-02-12] MEDS: diphenhydrAMINE CAP 25 MG CAPSULE PO PRN (10:28)
[2022-02-12] MEDS: ceFAZolin 2,000 MG/50 ML DUPLEX IV SCH ×2 (12:00→19:25)
[2022-02-12] MEDS: INSULIN LISPRO 100 UNIT/ML SUBCUT SCH ×3 (12:04→21:04)
[2022-02-12] MEDS: LACTATED RINGERS 1,000 ML IV SCH ×2 (14:25→17:56)
[2022-02-12] MEDS: FUROSEMIDE 40 MG TABLET PO SCH (16:06)
[2022-02-12] MEDS: INSULIN NPH/REGULAR 70/30 100 UNIT/ML SUBCUT SCH (16:06)
[2022-02-12] MEDS: WARFARIN 5 MG TABLET PO SCH (17:56)
[2022-02-12] MEDS: DOCUSATE SODIUM 100 MG CAPSULE PO SCH (21:04)
[2022-02-12] MEDS: ACETAMINOPHEN 325 MG TABLET PO PRN (21:04)
[2022-02-12] MEDS: METOPROLOL TARTRATE 50 MG TABLET PO SCH (21:05)
[2022-02-12] MEDS: ROSUVASTATIN 20 MG TABLET PO SCH (21:05)
[2022-02-12] MEDS: GABAPENTIN 400 MG CAPSULE PO SCH (21:05)
[2022-02-13] MEDS: diphenhydrAMINE CAP 25 MG CAPSULE PO PRN (02:01)
[2022-02-13 05:36] LABS: Basophils % 0.3 % (0.0-0.8); Eosinophils # 0.1 10*3/uL (0.0-0.87); Eosinophils % 0.6 % (0.00-10.9); Hematocrit 34.4 VOL% (42.0-52.0); Hemoglobin 11.3 GM/DL (14.0-18.0); Immature Granulocytes % 0.6 %; Immature Granulocytes Absolute 0.07 #; Lymphocytes # 2.7 10*3/uL (1.4-4.0); Lymphocytes % 24.5 % (21.2-54.2); Mean Corpuscular HGB Conc 32.8 GM/DL (32-36); Mean Corpuscular Volume 103.3 FL (87-102); Mean Platelet Volume 9.9 FL (9.6-12.0); Monocytes % 17.9 % (1.7-12.7); Neutrophils % 56.1 % (38.7-73.9); Platelet Count 195 T/CUMM (130-400); Red Blood Count 3.33 MC/CUMM (3.8-5.5); Red Cell Distribution Width 13.7 % (9.3-17.3); White Blood Count 10.9 T/CUMM (4-12)
[2022-02-13 05:57] LABS: Calcium 8.6 MG/DL (8.5-10.1); Osmolality,Calculated 277.1 MOS/KG (273-304); Potassium 4.2 MMOL/L (3.5-5.1)
[2022-02-13 06:00] LABS: Eosinophils 2 % (0-10); Lymphocytes 20 % (20-55); Macrocytosis Slight; Myelocytes 1 %; Total Cells Counted 100
[2022-02-13] MEDS: LACTATED RINGERS 1,000 ML IV SCH ×3 (06:00→23:46)
[2022-02-13 06:02] LABS: PT Patient Result 11.1 SECS (10.5-12.0)
[2022-02-13] MEDS ORDERED: lisinopriL 20 MG TABLET PO SCH (09:00)
[2022-02-13] MEDS: GABAPENTIN 400 MG CAPSULE PO SCH ×2 (09:58→20:21)
[2022-02-13] MEDS: METOPROLOL TARTRATE 50 MG TABLET PO SCH ×2 (09:58→20:21)
[2022-02-13] MEDS: PANTOPRAZOLE 40 MG TABLET PO SCH (09:59)
[2022-02-13] MEDS: ASPIRIN 325 MG TABLET PO SCH (09:59)
[2022-02-13] MEDS: DOCUSATE SODIUM 100 MG CAPSULE PO SCH ×2 (09:59→20:21)
[2022-02-13] MEDS: INSULIN LISPRO 100 UNIT/ML SUBCUT SCH ×4 (10:00→20:21)
[2022-02-13] MEDS: INSULIN NPH/REGULAR 70/30 100 UNIT/ML SUBCUT SCH ×2 (10:00→17:51)
[2022-02-13] MEDS: FUROSEMIDE 40 MG TABLET PO SCH (10:36)
[2022-02-13] MEDS ORDERED: METOPROLOL TARTRATE 25 MG TABLET PO ONE (11:00)
[2022-02-13] MEDS ORDERED: WARFARIN 5 MG TABLET PO SCH (18:00)
[2022-02-13] MEDS: ACETAMINOPHEN 325 MG TABLET PO PRN (20:21)
[2022-02-13] MEDS: ROSUVASTATIN 20 MG TABLET PO SCH (20:21)
[2022-02-14] MEDS: ACETAMINOPHEN 325 MG TABLET PO PRN ×4 (01:15→20:44)
[2022-02-14 05:27] LABS: Basophils % 0.2 % (0.0-0.8); Eosinophils # 0.1 10*3/uL (0.0-0.87); Eosinophils % 0.6 % (0.00-10.9); Hemoglobin 10.3 GM/DL (14.0-18.0); Immature Granulocytes % 0.4 %; Immature Granulocytes Absolute 0.05 #; Lymphocytes # 2.7 10*3/uL (1.4-4.0); Lymphocytes % 21.3 % (21.2-54.2); Mean Corpuscular HGB Conc 33.2 GM/DL (32-36); Mean Corpuscular Volume 101.3 FL (87-102); Mean Platelet Volume 9.7 FL (9.6-12.0); Monocytes # 1.7 10*3/uL (0.11-0.8); Neutrophils % 63.5 % (38.7-73.9); Platelet Count 165 T/CUMM (130-400); Red Blood Count 3.06 MC/CUMM (3.8-5.5); Red Cell Distribution Width 13.2 % (9.3-17.3); White Blood Count 12.4 T/CUMM (4-12)
[2022-02-14 05:37] LABS: INR 1.3; PT Patient Result 14.5 SECS (10.5-12.0)
[2022-02-14 05:45] LABS: Calcium 8.5 MG/DL (8.5-10.1); Osmolality,Calculated 274.8 MOS/KG (273-304); Potassium 3.8 MMOL/L (3.5-5.1)
[2022-02-14] MEDS: INSULIN LISPRO 100 UNIT/ML SUBCUT SCH ×4 (07:53→20:43)
[2022-02-14] MEDS: INSULIN NPH/REGULAR 70/30 100 UNIT/ML SUBCUT SCH ×2 (08:52→17:14)
[2022-02-14] MEDS: METOPROLOL TARTRATE 50 MG TABLET PO SCH ×2 (08:53→20:45)
[2022-02-14] MEDS: DOCUSATE SODIUM 100 MG CAPSULE PO SCH ×2 (08:53→20:45)
[2022-02-14] MEDS: ASPIRIN 325 MG TABLET PO SCH (08:53)
[2022-02-14] MEDS: GABAPENTIN 400 MG CAPSULE PO SCH ×2 (08:53→20:44)
[2022-02-14] MEDS: PANTOPRAZOLE 40 MG TABLET PO SCH (08:53)
[2022-02-14] MEDS ORDERED: lisinopriL 20 MG TABLET PO SCH (09:00)
[2022-02-14] MEDS: WARFARIN 5 MG TABLET PO SCH (17:12)
[2022-02-14 20:00] LABS: Urine Appearance Clear (Clear); Urine Color Yellow (Yellow)
[2022-02-14 20:01] LABS: Bilirubin,Urine Negative (Negative); Blood, Urine Moderate mg/dL (Negative); Glucose,Urine (UA) 250 mg/dL (Negative); Ketones,Urine Negative (Negative); Nitrite,Urine Negative (Negative); Protein,Urine 100 mg/dL (Negative); Urine Specific Gravity 1.025 (1.001-1.035); Urine pH 5.5 (4.5-8.0)
[2022-02-14 20:05] LABS: Bacteria,Urine Occasional /HPF (Few); Mucus,Urine Occasional /LPF (Occasional); RBC,Urine 2 /HPF (0-4); Squamous Epithelial Cell,Urine Occasional /HPF (0-10)
[2022-02-14] MEDS: ROSUVASTATIN 20 MG TABLET PO SCH (20:45)
[2022-02-15] MEDS: ACETAMINOPHEN 325 MG TABLET PO PRN (00:13)
[2022-02-15 04:42] LABS: Basophils % 0.3 % (0.0-0.8); Eosinophils # 0.1 10*3/uL (0.0-0.87); Eosinophils % 0.5 % (0.00-10.9); Hemoglobin 10.1 GM/DL (14.0-18.0); Immature Granulocytes % 0.7 %; Immature Granulocytes Absolute 0.08 #; Lymphocytes # 2.3 10*3/uL (1.4-4.0); Lymphocytes % 19.4 % (21.2-54.2); Mean Corpuscular HGB Conc 33.7 GM/DL (32-36); Mean Corpuscular Volume 100.3 FL (87-102); Mean Platelet Volume 9.6 FL (9.6-12.0); Monocytes # 1.3 10*3/uL (0.11-0.8); Neutrophils % 68.1 % (38.7-73.9); Platelet Count 155 T/CUMM (130-400); Red Blood Count 2.99 MC/CUMM (3.8-5.5); Red Cell Distribution Width 12.9 % (9.3-17.3)
[2022-02-15 04:48] LABS: INR 1.3; PT Patient Result 14.5 SECS (10.5-12.0)
[2022-02-15 04:59] LABS: Calcium 8.8 MG/DL (8.5-10.1); Osmolality,Calculated 277.8 MOS/KG (273-304); Potassium 3.8 MMOL/L (3.5-5.1)
[2022-02-15 08:17] VITALS: BP 178/92
[2022-02-15] MEDS: ASPIRIN 325 MG TABLET PO SCH (08:37)
[2022-02-15] MEDS: GABAPENTIN 400 MG CAPSULE PO SCH (08:37)
[2022-02-15] MEDS: PANTOPRAZOLE 40 MG TABLET PO SCH (08:37)
[2022-02-15] MEDS: METOPROLOL TARTRATE 50 MG TABLET PO SCH (08:37)
[2022-02-15] MEDS: DOCUSATE SODIUM 100 MG CAPSULE PO SCH (08:37)
[2022-02-15] MEDS: INSULIN LISPRO 100 UNIT/ML SUBCUT SCH (08:41)
[2022-02-15] MEDS: INSULIN NPH/REGULAR 70/30 100 UNIT/ML SUBCUT SCH (08:42)
[2022-02-15] MEDS ORDERED: lisinopriL 20 MG TABLET PO SCH (10:00)
[2022-02-15] MEDS ORDERED: FUROSEMIDE 40 MG TABLET PO SCH (10:00)
== END 2022-02-15 10:20 | disposition swing bed (61) | DRG 982 ==
LOC: N.SDSINP → N.OR 05:56 → N.SDSINP 05:56 → EDSTATUS 07:30 → N.3E 11:30
PROVIDERS: ADMIT Orthopaedic Surgery; ATTEND Orthopaedic Surgery